=== PATIENT | male | born 1950 | race Caucasian/White ===

== ENCOUNTER → 2019-06-05 08:47 | Emergency (ER) | payer MEDICARE ==
[~2019-06-05 08:47] MED LIST: Acetaminophen TAB* 325 MG PO ONE; Azithromycin 500 mg/250 ml NS 500 MG/250 ML BAG IVPB ONE; ED cefTRIAXone 1 GM/50 ML 1 GM/50 ML PREMIX.SET IVPB ONE; Iohexol 350* (CONTRAST) 500 ML MDV IV ONE; NS 0.9% 1000 ML** 1,000 ML IV.FLUID IV ONE; NS 0.9% IV ONE; Piperacillin/Tazobac ADVAN(*) 3.375 GM in NS 0.9% 100 ML* 100 ML IVPB ONE; Vancomycin(*) 1,500 MG in NS 0.9% 250 ML* 250 ML IVPB ONE; cefTRIAXone(*) 1 GM in NS 0.9% 50 ML* 50 ML IVPB ONE
--- NOTE | 2019-06-05 08:53 | ED ---
Shortness of Breath - HPI Summary HPI Summary: Time seen by provider: 0850 on 06/05/19. LEVEL 5 CAVEAT secondary to decreased verbal responsiveness. The patient is a 69 y/o M arriving by ambulance to [facility] from [facility] with concerns for increased lethargy and SOB this morning. Per EMS, staff at the [facility] were trying to get the patient up for breakfast when they noticed that he seemed to have difficulty breathing and presented much more lethargic than usual. Upon arrival of EMS, the patient's O2 sat was in the 80s% with improvement on CPAP machine. They note a fever to touch with mild BLE edema , decreased responsiveness without opening of the eyes, and is omitting a foul- smelling odor. Hypotension was noted, but vitals were otherwise stable, and [place] reports normal vitals at 0630 today. He additionally has a productive cough , but he denies CP or abd pain. It is noted that he recently had surgery in the right groin area, but staff do not know what the procedure was; he was sent to [facility] after being admitted to [place] with surgery at [facility]. He is currently on a fluid restriction at the [facility]. Medications include Digoxin for CHF, and he was recently placed on Warfarin but stopped taking Xarelto. Hx of CVA. - History of Current Complaint Time Seen by Provider: 06/05/19 08:50 Hx Obtained From: EMS, Medical Records, Other: - staff at [facility] Hx From Patient Unobtainable Due To: Other - LEVEL 5 secondary to decreased verbal responsiveness Onset/Duration: Still Present Current Severity: Moderate Dyspnea At: Rest Alleviating Factors: Other - CPAP in ambulance Associated Signs & Symptoms: Cough (Productive) - Allergy/Home Medications Allergies/Adverse Reactions: Allergies Allergy/AdvReac Type Severity Reaction Status Date / Time No Known Allergies Allergy Verified 06/05/19 09:16 Home Medications: Home Medications Acetaminophen SUPP* [Tylenol Supp*] 650 mg TX Q6H PRN 06/05/19 [History Confirmed 06/05/19] Acetaminophen [Tylenol] 1,000 mg PO Q8HR PRN 06/05/19 [History Confirmed ] Aspirin 81 mg PO DAILY 06/05/19 [History Confirmed 06/05/19] Atorvastatin* [Lipitor*] 80 mg PO DAILY 06/05/19 [History Confirmed 06/05/19] Bisacodyl SUPP* [Dulcolax Supp*] 10 mg TX DAILY PRN 06/05/19 [History Confirmed 06/05/19] Digoxin TAB* [Lanoxin TAB*] 0.125 mg PO DAILY 06/05/19 [History Confirmed ] Metoprolol Succinate 50 mg PO DAILY 06/05/19 [History Confirmed 06/05/19] Metoprolol Succinate [Toprol Xl] 100 mg PO DAILY 06/05/19 [History Confirmed 11/23] Warfarin TAB(*) [Coumadin TAB(*)] 2.5 mg PO BEDTIME 06/05/19 [History Confirmed 06/05/19] PMH/Surg Hx/FS Hx/Imm Hx Cardiovascular History: Reports: Hx Congestive Heart Failure Neurological History: Reports: Hx CVA - Surgical History Surgical History: Yes Surgery Procedure, Year, and Place: right vascular groin surgery 2019 - Family History Known Family History: Positive: Unknown - pt is - Social History Occupation: Retired Lives: At [facility] Alcohol Use: None Review of Systems Positive: Fever - to touch, Other - lethargic, omitting foul-smelling odor Negative: Chest Pain Positive: Shortness Of Breath, Cough - productive Negative: Abdominal Pain All Other Systems Reviewed And Are Negative: No - Comments Additional Review of Systems Comments: LEVEL 5 CAVEAT secondary to decreased verbal responsiveness. Physical Exam - Summary Physical Exam Summary: Constitutional: Well-developed, Well-nourished, Alert but somnolent, (-) Distressed Skin: Warm, Dry, Right groin incision that clean, dry, and intact with tres HENT: Normocephalic; Atraumatic Eyes: Conjunctiva normal Neck: Musculoskeletal ROM normal neck. (-) JVD, (-) Stridor, (-) Tracheal deviation Cardio: Rhythm regular, rate normal, Heart sounds normal; Intact distal pulses; The pedal pulses are 2+ and symmetric. Radial pulses are 2+ and symmetric. (-) Murmur Pulmonary/Chest wall: Effort normal. (+) Mild crackles in the right lower lung base, (-) Respiratory distress, (-) Wheezes, (-) Rales Abd: Soft, (-) tenderness, (-) Distension, (-) Guarding, (-) Rebound Musculoskeletal: (-) Edema Lymph: (-) Cervical adenopathy Neuro: Alert but somnolent, Slurred speech Psych: Mood and affect Normal Triage Information Reviewed: Yes Vital Signs Reviewed: Yes Completion Of Physical Exam Limited Due To: Level 5 - LEVEL 5 CAVEAT secondary to decreased verbal responsiveness. Diagnostics - Laboratory Result Diagrams: 06/05/19 09:41 06/05/19 09:41 Lab Statement: Any lab studies that have been ordered have been reviewed, and results considered in the medical decision making process. - Radiology CXR Radiology Interpretation Completed By: Radiologist Summary of Radiographic Findings: Impression: No active cardiopulmonary disease. ED physician has reviewed this report. - CT Chest/Thorax CTA CT Interpretation Completed By: Radiologist Summary of CT Findings: Impression: 1. No pulmonary arterial filling defect to suggest pulmonary embolism. 2. Emphysema. 3. Small bilateral pleural effusions. 4. Atherosclerosis. 5. 0.4 cm nodule of the left upper lobe. The recommendations for follow up and management of an incidentally detected pulmonary nodule less than 6 mm in size, in a patient without a history of malignancy, include no follow up for a low-risk patient or optional follow up CT in 12 months for a high risk patient. ED physician has reviewed this report. - EKG 0907 Cardiac Rate: Other Rate - 105 bpm EKG Rhythm: Atrial Fibrillation Summary of EKG Findings: Atrial fibrillation. No STEMI. Re-Evaluation - Re-Evaluation First Eval Re-Evaluation Time: 10:15 Change: Improved Comment: Patient's BP has improved and HR has normalized. He is still on high flow O2. As CXR is negative, we will proceed with CTA Chest/Thorax to rule out PE and PNA. Second Eval Re-Evaluation Time: 12:00 Comment: The patient reports that he is feeling better. Tachypnea has resolved, MAP is 68 mmHg. Third Eval Re-Evaluation Time: 14:45 Change: Improved - Arousable, VSS. MAP 68 Course/Dx - Course Course Of Treatment: Time seen by provider: 0850 on 06/05/19. LEVEL 5 CAVEAT secondary to decreased verbal responsiveness. Patient is a 69 y/o M arriving by ambulance from [facility], where the patient is in rehab following a right groin surgery. There were concerns for SOB and lethargy, and EMS reports O2 sat in 80s% on arrival with improvement with CPAP. He denies CP and abd pain but has a productive cough. Hypotensive upon arrival with fever, per EMS. Hx of CHF , CVA. Per operative report, patient had extensive vascular surgery performed by Dr. Mitchel Lincoln at [facility]. Upon physical exam, the patient exhibits mild crackles in the right lower lung base, slurred speech, somnolence, and a right groin incision that clean, dry, and intact with tres. Patient is in sepsis work up at 0900. In the ED course, the patient was administered Ns, Rocephin, Vancomycin, Zosyn, and Tylenol. Blood work reveals WBCs of 23.2, Hgb of 13.8, MPV of 6.2, absolute neuts of 22.5, absolute lymphs of 0.5, INR of 3.48 , APTT of 38.5, fibrinogen of 416.3, carbon dioxide f 20, glucose of 142, lactic acid of 4.4, calcium of 7.4, alkaline phosphatase of 168, first troponin of 0.09, CRP of 115.39, total protein of 4.6, and albumin of 2.4. Blood gas reveals pCO2 of 21, pO2 of 192, O2 sat of 100, and base excess of -7.2. UA reveals 3+ blood, 3+ RBCs, presence of hyaline casts, and 1+ glucose. EKG at 0907 reveals afib at 105 bpm. Chest x-ray shows no active cardiopulmonary disease. After improvement of BP, normalized HR, and negative chest x-ray results, we will proceed with CTA Chest/Thorax with contrast to rule out PE and PNA. Chest/Thorax CTA Impression: 1. No pulmonary arterial filling defect to suggest pulmonary embolism. 2. Emphysema. 3. Small bilateral pleural effusions. 4. Atherosclerosis. 5. 0.4 cm nodule of the left upper lobe. I spoke with Dr. Mike Murray, hospitalist covering [facility], and we discussed the patient going to [facility]. I spoke with Dr. Lester Sanchez, ICU coffee brewer at [facility]. He accepts the patient for transfer. The reason for transfer of the patient is that he may have severe sepsis related to post-operative complications, and he will need extensive vascular consultation in the hospital. He is diagnosed with septic shock. Patient continues to improve before transfer with resolved tachypnea and MAP of 68 mmHg. Repeat lactic acid is 2.4. CCT of - Diagnoses Provider Diagnoses: Septic shock - Physician Notifications Discussed Care of Patient With: Dr. Mike Murray - hospitalist at [facility] Time Discussed With Above Provider: 10:44 Instructed by Provider To: Other - I spoke with Dr. Murray, and we discussed the patient going to [facility]. At 1054, I spoke with Dr. Lester Sanchez, ICU coffee brewer, from [facility], who accepts patient for transfer. He accepst the patient for transfer. Reason For Transfer: Specialty or service not available at [facility] [place]. - patient needs vascular interventions, Patient not appropriate for [facility] [place]. Discharge - Sign-Out/Discharge Documenting (check all that apply): Patient Departure - Patient is accepted for transfer by Dr. Sanchez at [facility]. Patient Received Moderate/Deep Sedation with Procedure: No - Discharge Plan Condition: Stable Disposition: TRANS HIGHER LVL OF CARE FAC Referrals: No Primary Care Phys,NOPCP [Primary Care Provider] - - Billing Disposition and Condition Condition: STABLE Disposition: Trans Higher Lvl of Care Fac - Attestation Statements Document Initiated by Scribe: Yes Documenting Scribe: Sonya Church Provider For Whom Scribe is Documenting (Include Credential): Dr. Ranjit Urbina MD Scribe Attestation: Sonya Castaneda scribed for Dr. Ranjit Urbina MD on 06/05/19 at 1444. Scribe Documentation Reviewed: Yes Provider Attestation: The documentation as recorded by the Sonya peter accurately reflects the service I personally performed and the decisions made by me, Dr. Ranjit Urbina MD Status of Scribe Document: Viewed
[2019-06-05 09:46] LABS: Urine Appearance Clear; Urine Bacteria Absent (Absent); Urine Bilirubin Negative (Negative); Urine Blood 3+ (Negative); Urine Color Yellow; Urine Glucose 1+(50 mg/dL) (Negative); Urine Ketones Negative (Negative); Urine Nitrite Negative (Negative); Urine Protein Negative (Negative); Urine Red Blood Cell 3+(>10/hpf) (Absent); Urine Specific Gravity 1.019 (1.010-1.030); Urine Urobilinogen Negative (Negative); Urine White Blood Cell Absent (Absent)
[2019-06-05 09:49] LABS: Hematocrit 42 % (42-52); Hemoglobin 13.8 g/dL (14.0-18.0); Mean Corpuscular HGB Conc 33 g/dL (31-36); Mean Corpuscular Hemoglobin 31 pg (27-31); Mean Corpuscular Volume 92 fL (80-94); Mean Platelet Volume 6.2 fL (7.4-10.4); Platelet Count 274 10^3/uL (150-450); Red Cell Distribution Width 14 % (10-15); White Blood Count 23.3 10^3/uL (3.5-10.8)
[2019-06-05 09:56] LABS: ABS Basophils 0.1 10^3/ul (0-0.2); ABS Eosinophils 0.1 10^3/ul (0-0.6); ABS Lymphocytes 0.5 10^3/ul (1.0-4.8); ABS Monocytes 0.2 10^3/ul (0-0.8); ABS Neutrophils 22.5 10^3/ul (1.5-7.7); Eosinophil % 0.4 %; Lymphocyte % 1.9 %
[2019-06-05 09:58] LABS: Activated Partial Thrombo Time 38.5 seconds (26.0-38.0); Fibrinogen 416.3 mg/dL (110.8-404.3); INR 3.48 (0.82-1.09)
[2019-06-05 10:07] LABS: Albumin 2.4 g/dL (3.2-5.2); Albumin/Globulin Ratio 1.1 (1-3); BUN/Creatinine Ratio 16.1 (8-20); C Reactive Protein 115.39 mg/L (<8.01); Calcium 7.4 mg/dL (8.6-10.3); EGFR African American 104.7 (>60); EGFR Non-African American 86.5 (>60); Globulin 2.2 g/dL (2-4); Potassium 3.8 mmol/L (3.5-5.0); Total Bilirubin 0.8 mg/dL (0.2-1.0); Total Protein 4.6 g/dL (6.4-8.9)
[2019-06-05 10:11] LABS: Troponin I 0.09 ng/mL (<0.04)
[2019-06-05 12:33] LABS: Digoxin 1.3 ng/ml (0.8-2.0)
[2019-06-05 15:00] VITALS: BP 96/65
== END | disposition short-term general hospital (02) ==
LOC: ED 08:47
DX: A41.9 Sepsis, unspecified organism (principal); R65.21 Severe sepsis with septic shock; I50.9 Heart failure, unspecified; Z86.73 Personal history of transient ischemic attack (TIA), and cerebral infarction without residual deficits; Z79.82 Long term (current) use of aspirin; Z79.899 Other long term (current) drug therapy; Z79.01 Long term (current) use of anticoagulants; J43.9 Emphysema, unspecified; J90 Pleural effusion, not elsewhere classified; I70.0 Atherosclerosis of aorta; R91.8 Other nonspecific abnormal finding of lung field
CPT/HCPCS: 36415; 71045; 71275; 80053; 80162; 81003; 81015; 82803; 83605; 84484; 85025; 85384; 85610; 85730; 86140; 87040; 93005; 96365; 96366; 96375; 99285; A9270-GY; J0456; J0696; J2543; J3370; Q9967